=== PATIENT | female | born 1985 | race Caucasian/White ===

== ENCOUNTER 2017-06-07 19:51 | Emergency (ER) | payer BC ==
[2017-06-07 20:06] VITALS: RESP 18; TEMP 97.5
--- NOTE | 2017-06-07 22:36 | ED ---
Female Urogenital HPI - General Chief complaint: Vaginal Bleeding Stated complaint: Miscarriage Time Seen by Provider: 06/07/17 20:24 Source: patient, RN notes reviewed, old records reviewed Mode of arrival: ambulatory Limitations: no limitations - History of Present Illness Initial comments: Patient is a 32-year-old female presents emergency Department chief complaint vaginal bleeding. Patient reports that she was having a miscarriage and thinks that she may have passed the fetus, she reports she is close to 6 weeks . She reports that she's had bleeding for the past 2 days. She reports she has had one previous miscarriage and one living child. Patient reports that she's trending and evaluated by ADJ[employer]CT TRAINER as to why she is having these miscarriages. Patient states that she's had no fever or chills, she denies any lightheadedness - Related Data Home Medications Medication Instructions Recorded Confirmed Loratadine [Alavert] 10 mg PO DAILY PRN 12/26/15 06/07/17 EPINEPHrine (Auto Inject) [Epipen] 0.3 mg IM ONCE PRN 06/07/17 06/07/17 Allergies Allergy/AdvReac Type Severity Reaction Status Date / Time almond Allergy Unknown Verified 06/07/17 21:07 carrot Allergy Unknown Verified 06/07/17 21:07 peanut Allergy Unknown Verified 06/07/17 21:07 pear Allergy Unknown Verified 06/07/17 21:07 peas Allergy Unknown Verified 06/07/17 21:07 tree nut [Nut] Allergy Unknown Verified 06/07/17 21:07 venom-honey bee Allergy Swelling Verified 06/07/17 21:04 [bee venom (honey bee)] Cantaloupe Allergy Unknown Uncoded 06/07/17 21:07 Lettuce Allergy Unknown Uncoded 06/07/17 21:07 Review of Systems ROS Statement: Those systems with pertinent positive or pertinent negative responses have been documented in the HPI. ROS Other: All systems not noted in ROS Statement are negative. Past Medical History Past Medical History: Asthma Additional Past Medical History / Comment(s): CURRENTLY BREAST FEEDING, HX CHILDHOOD ASTHMA, ABNORMAL PAP SMEAR History of Any Multi-Drug Resistant Organisms: None Reported Past Surgical History: No Surgical Hx Reported Additional Past Surgical History / Comment(s): WISDOM TEETH Past Anesthesia/Blood Transfusion Reactions: No Reported Reaction Past Psychological History: No Psychological Hx Reported Smoking Status: Never smoker - Past Family History Mother Family Medical History: No Reported History General Exam - General Exam Comments Initial Comments: Well appearing 32 year old female, no acute distress. Limitations: no limitations General appearance: alert, in no apparent distress Head exam: Present: atraumatic, normocephalic, normal inspection Eye exam: Present: normal appearance, PERRL, EOMI. Absent: scleral icterus, conjunctival injection, periorbital swelling ENT exam: Present: normal exam, mucous membranes moist Neck exam: Present: normal inspection. Absent: tenderness, meningismus, lymphadenopathy Respiratory exam: Present: normal lung sounds bilaterally. Absent: respiratory distress, wheezes, rales, rhonchi, stridor Cardiovascular Exam: Present: regular rate, normal rhythm, normal heart sounds. Absent: systolic murmur, diastolic murmur, rubs, gallop, clicks GI/Abdominal exam: Present: soft, normal bowel sounds. Absent: distended, tenderness, guarding, rebound, rigid External exam: Present: normal external exam. Absent: erythema, swelling Speculum exam: Present: vaginal bleeding. Absent: normal speculum exam, erythema, vaginal discharge, cervical discharge By manual exam: Present: normal by manual exam Extremities exam: Present: normal inspection, full ROM, normal capillary refill. Absent: tenderness, pedal edema, joint swelling, calf tenderness Back exam: Present: normal inspection Neurological exam: Present: alert, oriented X3, CN II-XII intact Psychiatric exam: Present: normal affect, normal mood Skin exam: Present: warm, dry, intact, normal color. Absent: rash Course Vital Signs 06/07/17 06/07/17 20:03 23:00 Temperature 97.5 F L 97.5 F L Pulse Rate 104 H 98 Respiratory 18 18 Rate Blood Pressure 114/71 120/66 O2 Sat by Pulse 99 99 Oximetry Medical Decision Making - Medical Decision Making Patient is a 32-year-old female presents emergency Department chief complaint vaginal bleeding. Patient reports that she was having a miscarriage and thinks that she may have passed the fetus, she reports she is close to 6 weeks . She reports that she's had bleeding for the past 2 days. Patient does have some scant vaginal bleeding. She did bring some collection of tissue which she may pass the fetus. Patient's hCG is 313. Patient is Rh+. Discussed that she needs follow-up with her ADJ[employer]CT TRAINER. Discussed repeating hCG. Discussed that hCG level CCCXIII is not compatible with septal 6 week and that she miscarriage. Patient agrees to treatment plan will comply. - Lab Data Lab Results 06/07/17 06/07/17 Range/Units 22:05 22:05 HCG, Quant 313.8 mIU/mL Blood Type O Positive Blood Type Recheck No - Radiology Data Radiology results: report reviewed Uterus measures 6.8 x 3.9 x 2.7 m. No myometrial normality. Right ovary is within normal limits. No torsion. Left ovary is also within normal limits and no torsion. No free fluid. Impression is no etiology of symptoms. There is no evidence of intrauterine . Disposition Clinical Impression: Threatened miscarriage Disposition: HOME SELF-CARE Condition: Good Instructions: Threatened Miscarriage (ED) Additional Instructions: Patient needs to repeat blood work in approximately 2 days. Return to the emergency department if any alarming signs or symptoms occur. Follow-up with her ADJUNCT TRAINER. Referrals: Joselin Mtz MD [Primary Care Provider] - 1-2 days Time of Disposition: 22:35
[2017-06-07 23:01] VITALS: BP 120/66; PULSE 98
--- NOTE | 2017-06-07 23:20 | US ---
EXAM: US Pelvis, Transvaginal CLINICAL HISTORY: Reason: Pain and bleeding. TECHNIQUE: Real-time transvaginal pelvic ultrasound (complete) with image documentation. Scanning performed via transvaginal route only. COMPARISON: No relevant prior studies available. FINDINGS: Uterus/cervix: The uterus measures 6.8 x 3.9 x 2.8 cm. No focal myometrial abnormality. Uniform endometrial stripe thickness, within normal limits, measuring under 4 mm. Right ovary: Right ovary measures 3.6 x 2.4 x 2.1 cm, contains small follicles without evidence of torsion. Left ovary: Left ovary size appears to be slightly underestimated, measured at 2.6 x 1.6 x 1.3 cm and containing small follicles without current evidence of torsion. Free fluid: No free fluid. Bladder: Empty bladder which cannot be evaluated with this probe. IMPRESSION: No specific etiology of the patient's symptoms detected.
--- NOTE | 2017-06-10 07:15 | CDI ---
Documentation Clarification OP Dear SLIME Zimmerman: Please do addendum to ED report for HPI and physical exam. Thank you, Tess Esposito Gusset Edger If you have any question, Please contact real estate manager at [phone] [id number]
== END 2017-06-07 23:00 | disposition home or self-care (01) ==
LOC: EC 19:51
DX: O20.0 Threatened abortion (principal); Z3A.01 Less than 8 weeks gestation of pregnancy; Z91.010 Allergy to peanuts; Z91.018 Allergy to other foods; Z91.030 Bee allergy status
CPT/HCPCS: 36415; 76830; 84702; 86900; 86901; 88305; 93975; 99284